=== PATIENT | female | born 1935 | race Caucasian/White ===

== ENCOUNTER 2018-04-20 13:37 | Emergency (ER) | payer MEDICARE, OTHER ==
[~2018-04-20] VITALS: Ht 160 cm; Wt 65.0 kg
[2018-04-20 13:51] VITALS: BP 137/55
[2018-04-20] MEDS ORDERED: PROPARACAINE OPHTH 0.5%, 15ML EACHEYE ONE (14:30)
[2018-04-20] MEDS ORDERED: FLUORESCEIN OPHTHALMIC 1 MG STRIP EACHEYE ONE (14:30)
== END 2018-04-20 14:41 | disposition home or self-care (01) ==
LOC: ED 14:35
DX: H10.11 Acute atopic conjunctivitis, right eye (principal)
CPT/HCPCS: 99283